=== PATIENT | male | born 1960 | race Caucasian/White ===

== ENCOUNTER 2022-11-11 08:37 | Day surgery (SDC) | payer OTHER ==
[2022-11-07 11:55] VITALS: BMI 33.2
[2022-11-11] MEDS ORDERED: PROPOFOL 40 ML ONE (11:11)
== END 2022-11-11 12:20 | disposition home or self-care (01) ==
LOC: CSHSDC 08:37
PROVIDERS: ATTEND Internal Medicine Gastroenterology
PROC: 0DJD8ZZ Inspection of Lower Intestinal Tract, Via Natural or Artificial Opening Endoscopic (ICD-10-PCS; principal; 2022-11-11)
DX: K63.5 Polyp of colon (principal); E66.9 Obesity, unspecified; I10 Essential (primary) hypertension; G47.33 Obstructive sleep apnea (adult) (pediatric); E11.40 Type 2 diabetes mellitus with diabetic neuropathy, unspecified; K62.89 Other specified diseases of anus and rectum; K64.9 Unspecified hemorrhoids; Z88.8 Allergy status to other drugs, medicaments and biological substances; Z88.0 Allergy status to penicillin; Z68.33 Body mass index [BMI] 33.0-33.9, adult
CPT/HCPCS: J2704